=== PATIENT | female | born 1965 | race Two or more races ===

== ENCOUNTER 2019-07-09 10:26 | Emergency (ER) | payer MEDICAID, OTHER ==
[~2019-07-09] VITALS: Ht 154.9 cm; Wt 61.0 kg
[2019-07-09 10:51] VITALS: BP 159/82
== END 2019-07-09 12:00 | disposition home or self-care (01) ==
LOC: ER 10:26
DX: M79.644 Pain in right finger(s) (principal); S67.10XA Crushing injury of unspecified finger(s), initial encounter; S67.21XA Crushing injury of right hand, initial encounter
CPT/HCPCS: 29130; 73140; 99283; Z7610